=== PATIENT | male | born 2000 | race Caucasian/White ===

== ENCOUNTER 2019-11-05 16:30 | Outpatient (RCR) | payer MEDICAID, SELFPAY ==
--- NOTE | 2019-10-15 07:56 | HP.PTEVAL ---
Patient's Visit Information JAMES AYOUB is a 19 year old M referred to Physical Therapy by ZEV NICOLE with a diagnosis of TBI. Date of Evaluation: 10/14/19 Physical Therapist: Madelaine Montiel DPT - Visit Plan Frequency: 2x /Week Duration: 4 Weeks Plan: Focus on transfers and functional mobility- and contractures - Subjective Accident when he was 2 years old-TBI. Reports working with [employer] and has had his power chair for approx 7 years. Lives with mom and legal guardian- Uses a powerchair as his primary mode of transporation inside and outside of the home. If he is going from toilet to chair he can get in/out using upper body strength- he can transfer in/out of his bed. When at [facility] he uses a amena or mom helps with transfers. If he wants to sit on the couch his mom transfers- moves him like a baby and can use a transfer board and gait belt. Does not have a lift at home. Has a ramp to transport in/out of van and in/out of the house. Has a van that he can get in/out of. He has a transfer chair bought by mom that he is unable to propel himself. He is able to dress himself- requires assistance with bathing and cooking. Uses a bedside commode. Regular bed when he wakes up he gets straight into his chair. He prefers to sleep in his chair. Spends between 12-18 hours in his chair. Estimated to be between 6 foot and 6'2- He has contractures in both his arms and legs hard to get a good height- Approx 98 lbs. Plays lots of video games- all day everyday. Looking for a comfortable cushion, reclineable back rest, swingable arm rest and power chair. Incontient so needs a cushion that can be washed. No pressure sores- can do his own weight shift. Full sensation. No pain to report. - Objective Posture: FH, RS- moderate scoliosis- positioned in chair with moderate side bend to the left. Transfers: transfers I with use of left arm and right leg- from equal surfaces- unable to stand or transfer to different heights. Dependent transfers from different heighted surfaces. Unable to weight shift off the left side. Primary mode of transportation is w/c. ROM:Right: Ankle: prefers inversion and plantar flexion: can get to DF neutral with significant OP. Knee: 40 degrees of extension contracture flexion: 150 degrees, Hip: WNL in all planes Left: Ankle: WNl in all planes, Knee: 30 degrees of extension contracture Flexion: 150 degrees Hip: WNL. Core: WFL in all planes but has poor control Left arm: contractures in the left arm and wrist- approx 20 degrees contracture of the elbow extension- elbow flexion is full. Wrist: flexion contracture- can get to neutral extension. Shoulder: left: abd: 120 degrees flexion: 90 degrees. Poor finger dexterity. And is unable to make a fist. Right: Full ROM in right UE. Strength: Right LE: 2+/5 throughout Left LE: Ankle: 4/5 with combined motion of the knee/hip. Knee: 4+/5, Hip: Flexion: 4-/5, Add: 4+/5 Abd: 4-/5, Extn: 4-/5. Core: fair minus. Left UE: contractures throughout unable to use functionally. Right UE: 5/5 throughout. Tone: increased in left UE and bilateral LE. Sensation: WNL to gross touch bilaterally in UE and LE - Goals Goal 1:: Patient and family will be I with HEP and progression Goal Time Frame: 4-6 Weeks Goal 2:: Patient will transfer to different surfaces I Goal Time Frame: 4-6 Weeks Goal 3:: Patient will demo increased strength in deficit areas Goal Time Frame: 4-6 Weeks - Rehabilitation Potential Physical Therapy Diagnosis: Patient presents with hypomobility- he has increased tone, contractures, decreased ROM, strength and muscular endurnace leading to inability to transfer indep and perform ADL's. Rehabilitation Potential: Fair - Anticipated Interventions Patient/Client Instruction: Educate patient on: Benefits of Fitness Program Therapeutic Exercise to Include: Strength training, Endurance training, Balance training, Coordination, Agility training, Body mechanics, Postural training, Flexibilty training, Gait and locomotor training, Neuromotor development, Passive ROM, Active ROM, Dynamic Lumbar Stabilization, Scapular Strength/Stabilization For the Purpose of:: To improve muscle performance and motor function Thank you for the opportunity to evaluate your patient. For Medicare and Medicare HMO plans, please review the plan of care and approve it. It will need to be FAXED BACK to us at [phone] for Medicare purposes. For Medicare only, by signing this I certify the plan of care. Please let me know if there are questions or concerns regarding this plan of care. Physician Signature: Date:
--- NOTE | 2020-03-10 10:47 | HP.PT.NRP ---
JAMES LIZMIREYA was seen in my office for initial evaluation on 10/14/19. The following Plan of Care was established for this patient: Initial Frequency: 2x /Week Initial Duration: 4 Weeks Patient/Client Instruction: Educate patient on: Benefits of Fitness Program Therapeutic Exercise to Include: Strength training, Endurance training, Balance training, Coordination, Agility training, Body mechanics, Postural training, Flexibilty training, Gait and locomotor training, Neuromotor development, Passive ROM, Active ROM, Dynamic Lumbar Stabilization, Scapular Strength/Stabilization For the Purpose of:: To improve muscle performance and motor function This patient was last seen in our office . Pertinent comments regarding their Physical therapy will appear below: Continue to wait on approval for braces- discharge at this time. At this point I will be discontinuing this patient from physical therapy. I would be happy to see this patient again in the future if found appropriate by the physician. Thank you! Madelaine Montiel DPT
== END 2019-11-05 19:00 | disposition home or self-care (01) ==
LOC: PT 16:30
DX: G80.0 Spastic quadriplegic cerebral palsy (principal); R25.2 Cramp and spasm; R26.9 Unspecified abnormalities of gait and mobility
CPT/HCPCS: 97110; 97140; 97163; 97530

== ENCOUNTER 2022-08-29 02:12 | Emergency (ER) | payer MEDICAID, SELFPAY ==
[2022-08-29 02:15] VITALS: BP 108/68; PULSE 97; RESP 16; TEMP 36.6; O2SAT 97; BMI 16.0
--- NOTE | 2022-08-29 03:13 | EDS_ITS ---
HPI History of Present Illness Chief Complaint: Fall Narrative Narrative: Patient is a 21-year-old male with past medical history of TBI and CVA. He has difficulty ambulating/standing because of this and gets around with a wheelchair. He states roughly 1 to 2-hour prior to arrival he was in his wheelchair and he was leaning over the side as he was trying to clean himself when he lost his balance and fell striking his dresser. He states he hit his head but denies any loss of consciousness or history of bleeding disorder or blood thinner use. His mother was able to find him and get him back up in his wheelchair and she noticed a laceration along the left eyebrow and with concern this may need closed he was brought in for evaluation. Patient denies any headache change in vision nausea or vomiting and mother states he is at his baseline mental status [facility] Medical History (Updated 08/29/22 @ 04:[address] Hal Avelar, DO) Stroke/cerebrovascular accident TBI (traumatic brain injury) Home Medications baclofen 20 mg tablet 20 mg PO Q6H 08/29/22 [History Last Taken Unknown] cyproheptadine 4 mg tablet 4 mg PO Q6H PRN Itching 08/29/22 [History Last Taken Unknown] diazepam 2 mg tablet 4 mg PO Q6H 08/29/22 [History Last Taken Unknown] ondansetron 4 mg disintegrating tablet 4 mg PO Q6H PRN Nausea 08/29/22 [History Last Taken Unknown] Allergy/AdvReac Type Severity Reaction Status Date / Time No Known Allergies Allergy Verified 08/29/22 02:39 Social History Smoking Status: Never smoker [facility] ED Constitutional Constitutional ED: Denies chills or fever(s) Eyes Eyes: Denies blurry vision or change in vision ENT ENT ED: Denies sore throat Cardiovascular Cardiovascular: Denies chest pain Respiratory/Chest Respiratory/Chest: Denies cough or dyspnea Gastrointestinal Gastrointestinal: Denies abdominal pain, diarrhea, nausea or vomiting Genitourinary Genitourinary ED: Denies dysuria Musculoskeletal Musculoskeletal: Denies back pain or neck pain Integumentary Reports other Details: Positive forehead laceration Neurologic Neurologic: Denies headache(s) Hematologic/Lymphatic Hematologic/Lymphatic: Denies easy bleeding or easy bruising EXAM Physical Exam Const Vital Signs: 08/29/22 02:15 08/29/22 02:25 Temperature 97.9 F Temperature Source Oral Pulse Rate 97 Respiratory Rate 16 Respiratory Effort Normal Blood Pressure 108/68 Blood Pressure Mean 81 Pulse Ox 97 Oxygen Delivery Method Room Air Room Air Positive well nourished and well developed General Appearance ED: well developed HEENT HEENT Narrative: Patient has a 2 cm linear subcutaneous layer deep laceration along the lateral portion of the left eyebrow. There is minimal ooze of blood and no foreign body. No signs of depressed or basilar skull fracture Eyes PERRL and EOMs intact bilaterally Eyes Narrative: No hyphema Neck supple Neck Narrative: No bony deformity or step-off of the cervical spine no midline pain with palpation Chest Wall palpation of chest normal Resp normal respiratory effort and clear to auscultation bilaterally Cardio regular rate and regular rhythm Extremity Extremity Narrative: No bony deformity or joint effusions noted Neuro oriented x3 Neuro Narrative: Patient has chronic changes secondary to history of CVA and TBI but no new deficits noted Sensorium / Orientation: alert Psych mental status grossly normal Skin Skin Narrative: Laceration to the left eyebrow as documented above MDM MDM MDM Narrative Medical decision making narrative: Patient reported mechanical fall and therefore there is no need for cardiac or syncope work-up. Differential includes basilar skull fracture versus epidural or subdural hematoma versus simple facial/scalp laceration. Patient does not take blood thinners his mechanism of injury was low he is awake and alert and at baseline mental status without signs of depressed or basilar skull fracture and therefore do not feel there is need for head CT. The patient had the facial laceration closed as documented below and following this as the wound has not been closed and there is no other signs of trauma he is otherwise safe for discharge Patient had the left eyebrow wound cleaned with chlorhexidine. It was anesthetized with 4 mL of 2% lidocaine with epinephrine in local fashion. The wound was copiously irrigated with normal saline. Then eight 5-0 Ethilon sutures were placed in simple interrupted fashion. This brought the wound together with good approximation. Patient tolerated procedure well without complication. History & Record Review Discussion w/independent historian: Patient and Family Discharge Plan Triage Chief Complaint: Fall ED Provider: Hal Avelar Dx/Rx/DC Orders Clinical Impression: Facial laceration, Head injury, History of CVA (cerebrovascular accident) Instructions: ED Head Injury (Adult), ED Laceration: All Closures Prescriptions: No Action baclofen 20 mg tablet 20 mg PO Q6H diazepam 2 mg tablet 4 mg PO Q6H Label Comments: take 1 tablet by mouth every 6 hours cyproheptadine 4 mg tablet 4 mg PO Q6H PRN (Reason: Itching) ondansetron 4 mg tablet,disintegrating 4 mg PO Q6H PRN (Reason: Nausea) Primary Care Provider: Care Physician,No Primary Referrals: Care Physician,No Primary [Primary Care Provider] - Activity Restrictions/Additional Instructions: Please see your family doctor or return to the ER in 7 to 10 days for suture removal. If you have any further concerns please return to the hospital for repeat evaluation Disposition Disposition: Home, Self Care Discharge Date/Time: 08/29/22 03:49
== END 2022-08-29 03:49 | disposition home or self-care (01) ==
LOC: ED 03:16
PROVIDERS: Emergency Provider Emergency Medicine; Visit Provider Emergency Medicine
DX: S01.112A Laceration without foreign body of left eyelid and periocular area, initial encounter (principal); I69.398 Other sequelae of cerebral infarction; Z87.820 Personal history of traumatic brain injury; S09.8XXA Other specified injuries of head, initial encounter; W05.0XXA Fall from non-moving wheelchair, initial encounter; Y93.89 Activity, other specified
CPT/HCPCS: 12011; 99282